=== PATIENT | female | born 1995 | race Hispanic/Latino ===

== ENCOUNTER 2021-06-17 06:51 | Emergency (ER) | payer OTHER ==
[2021-06-17] MEDS ORDERED: LIDOCAINE 1% MPF 5 ML VIAL ONE (08:00)
--- NOTE | 2021-06-17 08:44 | ER ---
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 Coronavirus iw screen: At this time, the client does not indicate any symptoms associated with coronavirus-19. Ebola Screen: Patient negative for fever greater than or equal to 101.5 degrees Fahrenheit, and additional compatible Ebola Virus Disease symptoms Patient denies exposure to infectious person. Patient denies travel to an Ebola-affected area in the 21 days before illness onset. No symptoms or risks identified at this time. Complicating Factors: There are no complicating factors for this patient. Initial Sepsis Screen: Does the patient meet any 2 criteria? No. Patient's initial sepsis screen is negative. Does the patient have a suspected source of infection? No. Patient's initial sepsis screen is negative. Risk Assessment: Do you want to hurt yourself or someone else? Patient reports no desire to harm self or others. Onset of symptoms was June 17, 2021. 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 - Social history:: Smoking status: Patient denies any tobacco usage or history of. Screenin:29 Abuse screen: Denies threats or abuse. Denies injuries from another. Nutritional iw screening: No deficits noted. Tuberculosis screenin:30 Fall Risk None identified. iw Assessment: 07:28 General: Appears in no apparent distress. Behavior is calm, cooperative. Pain: iw Complains of pain in palmar aspect of distal phalanx of right thumb Pain currently is 7 out of 10 on a pain scale. Neuro: Level of Consciousness is awake, alert, obeys commands, Oriented to person, place, time, situation, Moves all extremities. Full function. Derm: Skin. Musculoskeletal: Range of motion: intact in all extremities. Injury Description: Laceration sustained to palmar aspect of distal phalanx of left thumb is jagged, 0.5 to 2.5 cm long, is bleeding a small amount. Vital Signs: 07:21 BP 116 / 59; Pulse 62; Resp 16; Temp 98.4; Pulse Ox 100% on R/A; Weight 70.31 kg; iw Height 5 ft. 5 in. (165.10 cm); Pain 7/10; 07:21 Body Mass Index 25.79 (70.31 kg, 165.10 cm) iw ED Course: 06:52 Patient arrived in ED. am2 07:22 Triage completed. iw 07:27 Boyd Villa PA is PHCP. jr8 07:27 Hood Beach MD is Attending Physician. jr8 07:28 Priscilla Ramirez RN is Primary Nurse. iw 07:30 Patient has correct armband on for positive identification. iw 07:35 Arm band placed on. iw 08:44 Ba Cat MD is Referral Physician. jr8 08:50 Assist provider with laceration repair on palmar aspect of distal phalanx of right iw thumb that was between 2.6 to 7.5 cm using sutures. Set up tray. Performed by Boyd SAAVEDRA Dressed with 4X4s, Patient tolerated well. Patient did not have IV access during this emergency room visit. Administered Medications: No medications were administered Outcome: 08:44 Discharge ordered by . jr8 09:13 Discharged to home ambulatory. iw 09:13 Condition: good 09:13 Discharge instructions given to patient, Instructed on discharge instructions, follow up and referral plans. Demonstrated understanding of instructions, follow-up care, medications, Prescriptions given X 1. 09:14 Patient left the ED. iw Signatures: Priscilla Ramirez RN RN Boyd Villa PA PA jr8 Kalpana Ayers am2
--- NOTE | 2021-06-17 08:45 | EDPHYS ---
Physician Documentation [facility] Name: Bria Botello Age: 25 yrs Sex: Female : 1995 Arrival Date: 06/17/2021 Time: 06:52 Bed Treatment Private MD: ED Physician Hood Beach HPI: 06/17 08:45 This 25 yrs old Female presents to ER via Ambulatory with complaints of jr8 Laceration To Hand. 08:45 Onset: The symptoms/episode began/occurred acutely, today. Associated signs and jr8 symptoms: The patient has no apparent associated signs or symptoms. The patient has not experienced similar symptoms in the past. The patient has not recently seen a physician. 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 - Social history:: Smoking status: Patient denies any tobacco usage or history of. ROS: 08:45 Constitutional: Negative for fever, chills, and weight loss, MS/Extremity: Negative for jr8 injury and deformity. 08:45 Skin: Positive for laceration(s), of the palmar aspect of distal phalanx of right thumb. 08:45 All other systems are negative. Exam: 08:45 Constitutional: This is a well developed, well nourished patient who is awake, alert, jr8 and in no acute distress. Cardiovascular: Regular rate and rhythm with a normal S1 and S2. No gallops, murmurs, or rubs. Normal PMI, no JVD. No pulse deficits. Respiratory: Lungs have equal breath sounds bilaterally, clear to auscultation and percussion. No rales, rhonchi or wheezes noted. No increased work of breathing, no retractions or nasal flaring. MS/ Extremity: Pulses equal, no cyanosis. Neurovascular intact. Full, normal range of motion. Neuro: Awake and alert, GCS 15, oriented to person, place, time, and situation. Motor strength 5/5 in all extremities. Sensory grossly intact. 08:45 Skin: injury, laceration(s), the wound is approximately 4 cm(s), with a depth of .5 cm(s), of the palmar aspect of distal phalanx of right thumb, that can be described as no foreign body, irregular, with mild bleeding. Vital Signs: 07:21 BP 116 / 59; Pulse 62; Resp 16; Temp 98.4; Pulse Ox 100% on R/A; Weight 70.31 kg; iw Height 5 ft. 5 in. (165.10 cm); Pain 7/10; 07:21 Body Mass Index 25.79 (70.31 kg, 165.10 cm) iw Laceration: 08:41 Wound Repair of 4cm ( 1.6in ) subcutaneous laceration to palmar aspect of distal jr8 phalanx of right thumb. Irregularly shaped.. Skin/tissue flap noted.. Distal neuro/vascular/tendon intact. Anesthesia: Local anesthetic administered with 2 mls of 1% lidocaine. Wound prep: Extensive cleansing with betadine, Wound irrigation with saline, Wound explored extensively. Skin closed with 8 4-0 Prolene using interrupted sutures and sterile technique. Patient tolerated well. MDM: 07:27 Patient medically screened. jr8 08:41 Data reviewed: vital signs, nurses notes, and as a result, I will discharge patient. jr8 Data interpreted: Pulse oximetry: on room air is 100 %. Interpretation: normal. Counseling: I had a detailed discussion with the patient and/or guardian regarding: the historical points, exam findings, and any diagnostic results supporting the discharge/admit diagnosis, the need for outpatient follow up, a hand specialist, to return to the emergency department if symptoms worsen or persist or if there are any questions or concerns that arise at home. ED course: Discussed with patient that she would need to follow-up with hand surgery for the unsutured open wound portion of her thumb. Warm water soap for cleansing every day. Not to use hydrogen peroxide. We will put patient on antibiotics. Patient up-to-date on tetanus vaccination. Patient understands that if her thumb were to become red or pustulous to come back immediately for further evaluation.. Administered Medications: No medications were administered Disposition: 06/18 07:03 Co-signature as Attending Physician, Hood Beach MD I agree with the assessment and elana plan of care. Disposition Summary: 06/17/21 08:44 Discharge Ordered Location: Home jr8 Problem: new jr8 Symptoms: have improved jr8 Condition: Stable jr8 Diagnosis - Laceration without foreign body of right thumb without damage to nail jr8 Followup: jr8 - With: Ba Cat MD - When: 2 - 3 days - Reason: Wound Recheck, Recheck today's complaints, Continuance of care, Re-evaluation by your physician Discharge Instructions: - Discharge Summary Sheet jr8 - Laceration Care, Adult jr8 Forms: - Medication Reconciliation Form jr8 - Thank You Letter jr8 - Antibiotic Education jr8 - Prescription Opioid Use jr8 Prescriptions: - cephalexin 500 mg Oral capsule - take 1 capsule by ORAL route every 8 hours for 7 days; 21 capsule; Refills: 0, jr8 Product Selection Permitted Signatures: Hood Beach MD MD cha Williams, Irene, DANN RN Boyd Velásquez PA PA jr8
[2021-06-17 09:19] VITALS: BP 116/59; TEMP 98.4; O2SAT 100
== END 2021-06-17 09:14 | disposition home or self-care (01) ==
LOC: ER 06:51
PROC: 0JQJ0ZZ Repair Right Hand Subcutaneous Tissue and Fascia, Open Approach (ICD-10-PCS; principal; 2021-06-17)
DX: S61.011A Laceration without foreign body of right thumb without damage to nail, initial encounter (principal); W45.8XXA Other foreign body or object entering through skin, initial encounter; Y93.89 Activity, other specified; Y92.89 Other specified places as the place of occurrence of the external cause; Y99.8 Other external cause status
CPT/HCPCS: 99283